=== PATIENT | male | born 1955 | race Caucasian/White ===

== ENCOUNTER 2018-02-17 12:16 | Emergency (ER) | payer OTHER ==
[~2018-02-17] VITALS: Ht 170.2 cm; Wt 89.4 kg
[~2018-02-17 12:16] MED LIST: COMBIGAN EYE DRO5 ML OP; LISINOPRIL-HCT1 EACH PO; VENLAFAXINE HCL75 M1 PO; XALATAN2.5 ML OPH
--- NOTE | 2018-02-17 12:28 | ED AMS/SEIZURE/WEAK/DIZZY ---
See Addendum History of Present Illness General Chief Complaint: Seizure Stated Complaint: BIBA R/O SEIZURE/AMS Source: patient Exam Limitations: no limitations Vital Signs & Intake/Output Vital Signs & Intake/Output Vital Signs Date Time Temp Pulse Resp B/P B/P Pulse O2 O2 Flow FiO2 Mean Ox Delivery Rate 02/17 1612 98.0 58 20 137/72 86 Room Air 02/17 1500 98.7 65 18 137/73 99 Room Air 02/17 1225 97.6 70 18 145/77 95 Room Air Allergies Coded Allergies: No Known Allergies (12/06/16) Reconcile Medications Buspirone HCl 15 MG TABLET 1 TAB PO BID MENTAL HEALTH (Reported) Divalproex Sodium 250 MG TABLET.DR 3 TAB PO BID SEIZURES (Reported) Latanoprost (Xalatan) 0.005 % DROPS 1 GTT OPH QPM GLAUCOMA (Reported) Lisinopril/Hydrochlorothiazide (Lisinopril-Hctz 20-12.5 MG Tab) 20 MG-12.5 MG TABLET 1 TAB PO DAILY HEART (Reported) Sertraline HCl 100 MG TABLET 1.5 TAB PO DAILY MENTAL HEALTH (Reported) Trazodone HCl 100 MG TABLET 1 TAB PO QPM SLEEP (Reported) Triage Note: PT BIBA S/P BEING FOUND ON FLOOR AT [facility]. EMS QUESTIONING SEIZURE/SYNCOPE. WOKE UP CONFUSED, APPEARING POST-ICTAL. MILD CONFUSION ON ARRIVAL. STATES HE'S HAD A SEIZURE IN THE PAST. AMER[place] ARELLANO AT BEDSIDE. Triage Nurses Notes Reviewed? yes Onset: Abrupt Duration: minute(s): HPI: 62-year-old male comes into the emergency room after being found unresponsive at [facility] and one of the eyelids. The patient is confused and a poor historian and history is very limited. He does remember going to [facility] to get a card for his ex-. He does not recall anything after that. He does not have any recall of the event that happened. He reports that the only thing abnormal is been that he is woken up the last 2 mornings feeling spacey and not himself. He has a history of remote seizures?. PT UNABLE TO PROVIDE A LOT OF INFO ON SEIZURES. (Tyree DRISCOLL,Pasquale) Past History Travel History Traveled to [place] past 21 day No Medical History Any Pertinent Medical History? see below for history Neurological: seizure EENT: glaucoma Cardiovascular: hypertension Psychiatric: depression Surgical History Surgical History: non-contributory Psychosocial History What is your primary language Cuban Tobacco Use: Quit >30 days ago Family History Hx Contributory? No (Pasquale Agarwal) Review of Systems Review of Systems Constitutional: Reports: no symptoms. EENTM: Reports: no symptoms. Respiratory: Reports: no symptoms. Cardiovascular: Reports: no symptoms. GI: Reports: no symptoms. Genitourinary: Reports: no symptoms. Musculoskeletal: Reports: no symptoms. Skin: Reports: no symptoms. Neurological/Psychological: Reports: see HPI. Hematologic/Endocrine: Reports: no symptoms. Immunologic/Allergic: Reports: no symptoms. All Other Systems: Reviewed and Negative (Pasquale Agarwal) Physical Exam Physical Exam General Appearance: well developed/nourished, no apparent distress, alert, awake Head: atraumatic, normal appearance Eyes: Bilateral: normal appearance, EOMI. Ears, Nose, Throat: normal ENT inspection, hearing grossly normal Neck: normal inspection Respiratory: normal breath sounds, no respiratory distress Cardiovascular: regular rate/rhythm Gastrointestinal: soft, non-tender Extremities: normal range of motion Neurologic/Psych: no motor/sensory deficits, awake, alert, ORIENTED TIMES 2 Skin: intact, normal color Core Measures ACS in differential dx? Yes CVA/TIA Diagnosis No Sepsis Present: No Sepsis Focused Exam Completed? No (Paqsuale Agarwal) Progress Differential Diagnosis: arrythmia, alcohol intoxication, CVA/stroke, drug intoxication, encephalitis, electrolyte imbalance, intracranial Hem., intracranial mass/tumor, pneumonia, presyncope, seizure disorder, UTI/pyelo, vertebrobasilar insuff Plan of Care: Orders Procedure Date/time Status Nothing by Mouth 02/18 B Active Pathway - chart 02/17 1629 Active House Staff 02/17 1629 Active Code Status 02/17 1629 Active House Staff 02/17 1618 Active Transfer patient to 02/17 1614 Active FingerStick- Glucose 02/17 1612 Active Lab Add-on Test 02/17 1604 Active EKG 02/17 1604 Active Patient Data 02/17 1504 Active Admit to inpatient 02/17 1438 Active DEPAKOTE LEVEL 02/17 1321 Complete Discontinue Telemetry/Monitor 02/17 1228 Active URINE DRUGS OF ABUSE 02/17 1228 Active TROPONIN LEVEL 02/17 1228 Complete PROLACTIN 02/17 1228 Complete ETHANOL 02/17 1228 Complete COMPREHENSIVE METABOLIC PANEL 02/17 1228 Complete CBC WITHOUT DIFFERENTIAL 02/178 Complete EKG 02/17 1228 Active Intake & Output 02/17 1226 Active VTE Mechanical Prophylaxis 02/17 UNK Active Vital Signs 02/17 UNK Active Seizure Precautions 02/17 UNK Active Precautions 02/17 UNK Active Laboratory Tests 02/17/18 1321: Anion Gap 9, Estimated GFR 47 L, BUN/Creatinine Ratio 17.3, Glucose 102 H, Calcium 8.9, Total Bilirubin 0.4, AST 32, ALT 46, Alkaline Phosphatase 47, Troponin I < 0.01, Total Protein 7.0, Albumin 4.0, Globulin 3.0, Albumin/ Globulin Ratio 1.3, Prolactin 11.6, CBC w Diff NO MAN DIFF REQ, RBC 3.81 L, MCV 97.3 H, MCH 33.5 H, MCHC 34.4, RDW 13.8, MPV 9.3, Gran % 75.3 H, Lymphocytes % 14.2 L, Monocytes % 10.1 H, Eosinophils % 0.2, Basophils % 0.2, Absolute Granulocytes 4.1, Absolute Lymphocytes 0.8 L, Absolute Monocytes 0.5, Absolute Eosinophils 0, Absolute Basophils 0, Valproic Acid 77.7, Serum Alcohol < 10.0 Diagnostic Imaging: Viewed by Me: Radiology Read, CT Scan. Discussed w/RAD: Radiology Read, CT Scan. Radiology Impression: PATIENT: ELY PAUL PRESENT AGE: 62 PATIENT ACCOUNT NO: [id number] : 54 LOCATION: [facility] ORDERING PHYSICIAN: Pasquale DRISCOLL SERVICE DATE: 02/17/18 EXAM TYPE : CAT - CT HEAD WO IV CONTRAST EXAMINATION: CT HEAD WITHOUT CONTRAST CLINICAL INFORMATION: Altered mental status found unresponsive. Confusion. COMPARISON: CT of the head done on 12/06/2016. TECHNIQUE: Contiguous axial imaging was performed from the skull base to vertex without intravenous administration of contrast. DLP: 611.05 mGy-cm FINDINGS: There is no evidence of acute intracranial hemorrhage or territorial infarction. No abnormal mass effect or midline shift is seen. Cruz to white matter differentiation is well preserved. No extra-axial fluid collections are identified. The ventricles are normal in size. There is no abnormal attenuation within the brain parenchyma. The osseous structures and soft tissues are normal. Lobulated soft tissue thickening is noted involving the left half of the sphenoid sinus, anteriorly extending into the adjacent posterior ethmoid air cells, similar to prior study, most consistent with sinusitis. Compared to prior study, mucosal thickening involving the right lobe of the sphenoid sinus appears improved. The remainder of the paranasal sinuses are well aerated and are unremarkable. Bilateral mastoid air cells are unremarkable. IMPRESSION: No acute intracranial pathology. Interval improvement of right sided sphenoidal sinus disease. No other significant change since 12/06/2016. DICTATED BY: Efren Mittal MD DATE/TIME DICTATED:02/17/181314 TENSILE TESTER:CARTER DATE/TIME TRANSCRIBED:02/17/181314 CONFIDENTIAL, DO NOT COPY WITHOUT APPROPRIATE AUTHORIZATION. <Electronically signed in Other Vendor System> SIGNED BY: Efren Mittal MD 02/17/18 1324, PATIENT: ELY PAUL PRESENT AGE: 62 PATIENT ACCOUNT NO: [id number] : 54 LOCATION: [facility] ORDERING PHYSICIAN: Pasquale DRISCOLL SERVICE DATE: 02/17/18 EXAM TYPE: RAD - XRY-PORTABLE CHEST XRAY EXAMINATION: XR PORTABLE CHEST CLINICAL INFORMATION: 62-year-old male with syncope versus seizures, confused. COMPARISON: None TECHNIQUE: Portable frontal view of the chest was obtained. FINDINGS: Hyperinflated lung field is present bilaterally. No superimposed discrete focal airspace disease is seen. The cardiac mediastinal silhouette is within normal limit. There is no pleural effusion or pneumothorax present. The visualized upper abdomen is unremarkable. IMPRESSION: No acute cardiopulmonary disease. DICTATED BY: Efren Mittal MD DATE/TIME DICTATED:02/17/181422 TENSILE TESTER:CARTER DATE/TIME TRANSCRIBED:02/17/181422 CONFIDENTIAL, DO NOT COPY WITHOUT APPROPRIATE AUTHORIZATION. <Electronically signed in Other Vendor System> SIGNED BY: Efren Mittal MD 02/17/181426 Initial ED EKG: normal sinus rhythm, rate (64) (Pasquale Agarwal) Departure Departure Disposition: STILL A PATIENT Condition: Stable Clinical Impression Primary Impression: Altered mental status Referrals: Nile Bruner MD (PCP/Family) Departure Forms: Customer Survey General Discharge Information Admission Note Spoke With: Renu Gonzáles MD Documentation of Exam: Documentation of any treatments & extenuating circumstances including Concerns Regarding Discharge (functional status, medication knowledge or non-compliance, living conditions, etc.) that warrant an admission rather than observation: MRI of brain. Neurology consultation. Repeat neuro checks. Patient is acutely altered here in the emergency room with no clear etiology. Patient still could be post ictal. Patient require close observation. Telemetry. Vital sign recheck. He is not safe for discharge. No family members. Tried contacting emergency contact number is not valid (Pasquale Agarwal) PA/[employer] Co-Sign Statement Statement: ED Attending supervision documentation- x I saw and evaluated the patient. I have also reviewed all the pertinent lab results and diagnostic results. I agree with the findings and the plan of care as documented in the PA's/[employer]'s documentation. Patient's history is concerning for further evaluation. Time of admission patient seems disoriented. Hemodynamically stable. [] I have reviewed the ED Record and agree with the PA's/[employer]'s documentation. [] Additions or exceptions (if any) to the PAs/[employer]'s note and plan are summarized below: [] (Joaquín MORIN,Vlad)
--- NOTE | 2018-02-17 13:24 | CT SCAN REPORT ---
EXAMINATION: CT HEAD WITHOUT CONTRAST CLINICAL INFORMATION: Altered mental status found unresponsive. Confusion. COMPARISON: CT of the head done on 12/06/2016. TECHNIQUE: Contiguous axial imaging was performed from the skull base to vertex without intravenous administration of contrast. DLP: 611.05 mGy-cm FINDINGS: There is no evidence of acute intracranial hemorrhage or territorial infarction. No abnormal mass effect or midline shift is seen. Cruz to white matter differentiation is well preserved. No extra-axial fluid collections are identified. The ventricles are normal in size. There is no abnormal attenuation within the brain parenchyma. The osseous structures and soft tissues are normal. Lobulated soft tissue thickening is noted involving the left half of the sphenoid sinus, anteriorly extending into the adjacent posterior ethmoid air cells, similar to prior study, most consistent with sinusitis. Compared to prior study, mucosal thickening involving the right lobe of the sphenoid sinus appears improved. The remainder of the paranasal sinuses are well aerated and are unremarkable. Bilateral mastoid air cells are unremarkable. IMPRESSION: No acute intracranial pathology. Interval improvement of right sided sphenoidal sinus disease. No other significant change since 12/06/2016.
[2018-02-17 13:37] LABS: ABSOLUTE BASOPHIL COUNT 0 /CUMM (0.0-0.2); ABSOLUTE EOSINOPHIL COUNT 0 /CUMM (0.0-0.7); ABSOLUTE GRANULOCYTE CT 4.1 /CUMM (1.4-6.5); ABSOLUTE LYMPH COUNT 0.8 /CUMM (1.2-3.4); ABSOLUTE MONOCYTE COUNT 0.5 /CUMM (0.10-0.60); BASOPHIL % 0.2 % (0.0-2.0); EOSINOPHIL % 0.2 % (0-5); GRANULOCYTE % 75.3 % (42.2-75.2); MEAN CORPUSCULAR HGB 33.5 PG (27.0-31.0); MEAN CORPUSCULAR HGB CONC 34.4 G/DL (33.0-37.0); MEAN CORPUSCULAR VOLUME 97.3 FL (80.0-94.0); MEAN PLATELET VOLUME 9.3 FL (7.4-10.4); PLATELET COUNT 175 /CUMM (130-400); RBC DISTRIBUTION WIDTH 13.8 % (11.5-14.5); RED BLOOD CELL CT 3.81 /CUMM (4.70-6.10); WHITE BLOOD CELL COUNT 5.4 /CUMM (4.8-10.8)
--- NOTE | 2018-02-17 14:27 | RADIOLOGY REPORT ---
EXAMINATION: XR PORTABLE CHEST CLINICAL INFORMATION: 62-year-old male with syncope versus seizures, confused. COMPARISON: None TECHNIQUE: Portable frontal view of the chest was obtained. FINDINGS: Hyperinflated lung field is present bilaterally. No superimposed discrete focal airspace disease is seen. The cardiac mediastinal silhouette is within normal limit. There is no pleural effusion or pneumothorax present. The visualized upper abdomen is unremarkable. IMPRESSION: No acute cardiopulmonary disease.
[2018-02-17] MEDS ORDERED: DIVALPROEX SOD250 M2 PO (14:48)
[2018-02-17] MEDS ORDERED: SERTRALINE HCL100 MG PO (14:53)
[2018-02-17] MEDS ORDERED: BUSPIRONE HCL15 M1 PO (14:53)
[2018-02-17] MEDS ORDERED: TRAZODONE HCL100 M1 PO (14:54)
--- NOTE | 2018-02-17 15:18 | History & Physical ---
[place] 02/17/18 1510: General Information and HPI MD Statement: I have seen and personally examined ELY PAUL and documented this H&P. The patient is a 62 year old M who presented with a patient stated chief complaint of unresponsiveness []. Source of Information: patient, old records, EMS Exam Limitations: no limitations History of Present Illness: 62-year-old male, smoking marijuana with past medical history of hypertension, seizures, glaucoma and depression brought to ED by EMS as patient was found unresponsive on the floor at [facility] pharmacy. According to the patient he was at [employer] to get a card for her . She at the store and when he woke up he found himself in ambulance. Patient does not remember what happened to him. He denied any presyncopal symptoms or aura-like symptoms. Patient denied chest pain, palpitation, nausea, vomiting, abdominal pain, shortness of breath, trauma to head, urine incontinence, stool incontinence, tongue bite and dysuria. Patient reported that he had that kind of episode 1 year back when he bit his tongue and still his tip of the tongue is numb. Patient has seizure-like episodes for last 1-1/2 years and he is following Dr. Jha. Patient also reported that he is falling seizure clinic at [place]. According the patient all his imaging studies including MRIs and EEG remained negative for seizures. He is taking his antiseizure Medications regularly. Patient reported that he is using Advil 800 mg every day for back pain. He had a seizure episode 6 weeks back when he was admitted to [facility] and then discharged from there. Patient reported family history of coronary artery disease as his father due to LA in his 40s. He denied any family history of seizures. ED course: Vitals: Temperature 97.6, pulse 70, respiratory rate 18, blood pressure 145/77, oxygen saturation 95% on room air. Lab: WBC count 5.4, hemoglobin 12.8, hematocrit 37.0, platelet count 175, sodium 131, potassium 4.0, creatinine 1.5, glucose 102, BUN/creatinine ratio 17.3, ALT 46, troponin less than 0.01 prolactin 11.6, serum alcohol level less than 10.[address] scan remained negative for any intracranial pathology except right-sided sphenoidal sinus disease. Chest x-ray remained negative for any intra-pulmonary pathology. Allergies/Medications Allergies: Coded Allergies: No Known Allergies (12/06/16) Home Med list Buspirone HCl 15 MG TABLET 1 TAB PO BID MENTAL HEALTH (Reported) Divalproex Sodium 250 MG TABLET.DR 3 TAB PO BID SEIZURES (Reported) Latanoprost (Xalatan) 0.005 % DROPS 1 GTT OPH QPM GLAUCOMA (Reported) Lisinopril/Hydrochlorothiazide (Lisinopril-Hctz 20-12.5 MG Tab) 20 MG-12.5 MG TABLET 1 TAB PO DAILY HEART (Reported) Sertraline HCl 100 MG TABLET 1.5 TAB PO DAILY MENTAL HEALTH (Reported) Trazodone HCl 100 MG TABLET 1 TAB PO QPM SLEEP (Reported) Past History Travel History Traveled to [place] past 21 day No Medical History Neurological: seizure EENT: glaucoma Cardiovascular: hypertension Psychiatric: depression Surgical History Surgical History: non-contributory Review of Systems Review of Systems Constitutional: Denies: chills, fever, weakness. EENTM: Reports: see HPI. Cardiovascular: Denies: chest pain, palpitations. Respiratory: Denies: cough, short of breath, sputum production, wheezing. GI: Denies: abdominal pain, constipation, diarrhea, nausea, vomiting. Genitourinary: Denies: discharge, dysuria, frequency. Musculoskeletal: Reports: back pain. Neurological/Psychological: Reports: confusion. Denies: headache, numbness. Exam & Diagnostic Data Last 24 Hrs of Vital Signs/I&O Vital Signs Date Time Temp Pulse Resp B/P B/P Pulse O2 O2 Flow FiO2 Mean Ox Delivery Rate 02/17 1500 98.7 65 18 137/73 99 Room Air 02/17 1225 97.6 70 18 145/77 95 Room Air Intake & Output 02/17 1600 02/17 0800 02/17 0000 Intake Total 0 Output Total Balance 0 Intake, Oral 0 Patient 197 lb Weight Weight Reported by Patient Measurement Method Physical Exam General Appearance Alert, Oriented X3, Cooperative Skin Temp/Moisture Exam: Warm/Dry Sepsis Skin Exam (color): Normal for Ethnicity HEENT Atraumatic, PERRLA, EOMI Neck Supple Cardiovascular Normal S1, Normal S2 Lungs Clear to Auscultation Abdomen Soft, No Tenderness Neurological Normal Speech, Strength at 5/5 X4 Ext, Normal Tone Extremities No Edema Assessment/Plan Assessment: 62-year-old male, smoking marijuana with past medical history of hypertension, seizures, glaucoma and depression brought to ED by EMS as patient was found unresponsive on the floor at [facility]. Seeing the patient on telemetry for following problems. Seizure episode: -Considering patient's history of sudden loss of consciousness and postictal changes as he was confused after the passing out episode, looks like patient has seizure episode. Also patient denied any nausea vomiting or palpitation before passing out. -Seizure precautions -Aspiration precautions -Continue his Depakote 750 mg twice daily -Monitor Depakote level. If his Depakote level is less than therapeutic then we will increase his Depakote dose. -Neurology recommendations -Considering his imaging studies in the past and EEGs but will not do any at this point. Symptomatic sinus bradycardia: -In ED patient had sinus bradycardia in 50s and he for couple of seconds. Patient had 12 seconds pause on monitoring analyst. -Considering patient's positive family history for coronary artery disease as his father in 40s, we will keep the patient on monitoring analyst to look for arrhythmias and pauses -Atropine and pacer pads on the bedside -Cardiology recommendations -Echocardiogram -Avoid AV daisy blocking meds. -Patient may need permanent pacemaker placement. Hyponatremia: -Possibly medication induced. On admission his sodium is 131 his last -Urine lytes to find the etiology. -Monitor his sodium levels Acute kidney injury: -Possibly due to adverse use as patient reported he was using Advil 800 mg daily for back pain. -On admission his creatinine is 1.5 and GFR is 47. -Avoid NSAIDs -Avoid nephrotoxic medications -Monitoring his renal function. History of back pain: -Avoid Advil -Warm compressions -Follow pain pathway for pain management. History of hypertension: -Continue lisinopril/hydrochlorothiazide History of depression: -Continue venlafaxine DVT prophylaxis: Mechanical and subcutaneous Lovenox CODE STATUS: Full code As Ranked By This Provider Problem List: 1. Hyponatremia 2. Acute kidney injury 3. Seizures Core Measures/Misc (02/13) Acute Coronary Syndrome ACS Diagnosis: No Congestive Heart Failure Congestive Heart Failure Diagnosis No Cerebrovascular Accident CVA/TIA Diagnosis: No VTE (View Protocol) VTE Risk Factors Age>40 No Mechanical VTE Prophylaxis d/t N/A MechProphylax Ordered No VTE Pharm Prophylaxis d/t NA PharmProphylax ordered Sepsis (View protocol) Sepsis Present: No If YES complete Sepsis Event Note If YES complete Sepsis Event Note Gianfranco Felton 02/17/18 1619: Core Measures/Misc (02/13) Sepsis (View protocol) If YES complete Sepsis Event Note If YES complete Sepsis Event Note Resident Review Statement Resident Statement: examined this patient, discussed with manufacturing engineering intern, agreed with manufacturing engineering intern, reviewed images, amended to note Other Findings: This is a 62 years old into man with past medical history of hypertension, glaucoma, seizure who follows up with Dr. Jha and is on antiseizure medication who was brought in by ambulance from [facility] after having an unwitnessed seizure activity. The patient started having seizure about 1-1/2 years ago has undergone extensive workup all of which has been negative. The most recent seizure she had was in December of which he reported that had skipped his antiseizure medication but volunteers that since then has been taking his medication constantly without missing. During this index episode the patient denies any aura prior to falling down and just workup to find himself in the ambulance. There was no fecal or urine incontinence and denies any tongue biting or mouth trauma. Patient denies any dizziness lightheadedness palpitation or shortness of breath. Short. After the patient was in the ER experienced a 12 second pause followed by 2 beats and then 6 second pause during which the patient passed out completely just to workup and becoming oriented again. He volunteers history of sudden cardiac in the family one uncle and his father at age 45. Patient reports he has been drinking appropriately but volunteers that has been taking Advil 800 mg every day for his chronic back pain. He smokes recreational marijuana but denies using any other drugs of abuse. On arrival the patient was afebrile 97.8 heart rate of 70 respiration of 18 blood pressure 145/77 and saturating 95% on room air When we examined the patient was awake alert and oriented to time place and person very pleasant and answering question appropriately. Neurological: Pupils equal round and reactive to light all cranial nerves III through XII normal normal power in both upper and lower limbs with normal reflexes, intact to sensation. Cardiovascular: Regular rate and rhythm normal S1-S2 no murmurs Lungs: Clear lungs bilaterally Extremities: No cyanosis edema or clubbing Blood work creatinine 1.5 previous 1.2 in 2017 GFR of 47 previous 60 negative troponin at 0.01 EKG showed normal sinus rhythm regular [address]-T wave changes and a QTC of 434 Assessment and plan 62 years old with history of seizure on seizure medications brought in by ambulance after being found unresponsive while in the ER experienced a total of 18 seconds pause with only 2 beats in between after 12 seconds. Found to have acute kidney injury picture with history of extensive use of NSAIDs. Seizure Arrhythmia with symptomatic pauses Acute kidney injury Hypertension Admit the patient to the intensive care unit Vital signs every hour Patient should be n.p.o. Cardiology consult Check Depakote level and continue dosing depending on the level Tropes and EKG 3 sets Avoid cardiac blocking medications Pacer pads by bedside and atropine Patient is full code Heparin for DVT prophylaxis Renu Gonzáles MD 02/17/18 1635: Core Measures/Misc (02/13) Sepsis (View protocol) If YES complete Sepsis Event Note If YES complete Sepsis Event Note Attending MD Review Statement Attending Statement Attending MD Statement: examined this patient, discuss w/resident/PA/ACLS SPECIALIST, agreed w/resident/PA/ACLS SPECIALIST, reviewed EMR data (avail) Attending Assessment/Plan: 62M PMH seizure disorder brought in by EMS after being found unresponsive at the [facility]. Patient was somnolent, then very confused, and mental status slowly improved over 2 hours. He did not have any witnessed seizure like activity, and on initial exam there was no facial droop, asymmetry, weakness, or focal neurological signs. He was A&Ox0 to ER. When I saw him, 3 hours after the event occured, he was A&Ox3 but still a bit confused. He was able to tell me that his last seizure was 6 weeks ago and he had his first one about a year and a half ago. I spoke to his neurologist, Dr. Jha, who reported that the patient has had multiple seizures over the past 18 months, and has had multiple negative EEG, MRI, and video-EEG. The patient takes Depakote 750mg BID and is compliant. Per Dr. Jha, the patient's memory problems linger weeks after each episode. On neuro exam, cranial nerves were intact, strength normal, sensation normal, cerebellar tests normal. The patient had no complaints, though was still slightly confused. CT head negative. 30 minutes after that, the patient had a 12 second run of asystole, followed by two sinus beats, then a 6 second run of asystole. He went back into NSR. This was witnessed by myself and ER nursing. During this episode, the patient started staring off, he would not respond when called, and he became diaphoretic. 30 minutes later he is speaking again but not making much sense and is A&Ox0. EKG done at that time now shows NSR at a HR [address]/T changes. It is possible the patient has been having asystolic episodes masquerading as seizures. Patient also just told us that his father at age 45 and his uncle at age 50, both of sudden cardiac . 1. Asystole 2. Seizure like activity 3. Unresponsiveness Plan - Admit to ICU - Spoke with cardiology who will urgently come and see the patient. Patient will likely require pacemaker placement - Critical care consult in the morning, Dr. Eckert made aware - Check electrolytes, Mg, TSH - Hold any AV-daisy blocking agents - No further brain imaging - Check Depakote level, if normal or low can restart Depakote - Hold all other home medications - DVT PPx
--- NOTE | 2018-02-17 16:47 | Admission Certification ---
Admission Certification Certification Statement - As attending physician, I certify that at the time of - admission, based on clinical presentation, severity of - symptoms, need for further diagnostic testing and - therapeutic interventions, and risk of adverse outcomes - without in-hospital treatment, in my clinical assessment, - this patient requires an acute hospital stay for a minimum - of two nights or longer. I have also considered psychsocial - factors such as support system, advanced age, financial - issues, cognitive issues, and failed out-patient treatments, - past re-admission history, safety of patient, and lack of - compliance as applicable. Specific rationale supporting this admission is: Asystole
[2018-02-17 17:09] VITALS: BP 165/87
--- NOTE | 2018-02-17 17:32 | Patient Discharge Instructions ---
Discharge Instructions General Discharge Information You were seen/treated for: Seizure disorder Asystole episode Special Instructions: Currently holding patient antihypertensive medications due to GÓMEZ picture review and restart accordingly. Patient psychiatric medications on hold because of the new Asystole. Review and restart accordingly Please call and make a follow-up with your neurologist within 1 week after discharge Please call and make a follow-up with your primary care physician within 1 week after discharge Acute Coronary Syndrome Inclusion Criteria At DC or during hospital stay patient has or had the following: ACS DIAGNOSIS No Discharge Core Measures Meds if any: Prescribed or Continued at Discharge Meds if any: NOT Prescribed or Continued at Discharge Congestive Heart Failure Inclusion Criteria At DC or during hospital stay patient has or had the following: CHF DIAGNOSIS No Discharge Core Measures Meds if any: Prescribed or Continued at Discharge Meds if any: NOT Prescribed or Continued at Discharge Cerebrovascular accident Inclusion Criteria At DC or during hospital stay patient has or had the following: CVA/TIA Diagnosis No Discharge Core Measures Meds if any: Prescribed or Continued at Discharge Meds if any: NOT Prescribed or Continued at Discharge Venous thromboembolism Inclusion Criteria VTE Diagnosis No VTE Type NONE VTE Confirmed by (Test) NONE Discharge Core Measures - Per Current guidelines, there needs to be overlap - treatment for the first 5 days of Warfarin therapy. - If discharged on Warfarin prior to 5 days of - overlap therapy, the patient will need to be - assessed for post discharge needs including - *Post discharge parental anticoagulation - *Warfarin and/or parental anticoagulation education - *Follow up date to check INR post discharge At least 5 days overlap therapy as Inpatient No Meds if any: Prescribed or Continued at Discharge Note: Overlap Therapy is Warfarin and Anticoagulant Meds if any: NOT Prescribed or Continued at Discharge
--- NOTE | 2018-02-17 17:42 | Discharge Summary ---
Visit Information Visit Dates Admission Date: 02/17/18 Discharge Date: February 17, 2018 Hospital Course Course Attending Physician: Renu Gonzáles MD Primary Care Physician: Nile Bruner MD Hospital Course: This is a 62 years old into man with past medical history of hypertension, glaucoma, seizure who follows up with Dr. Jha and is on antiseizure medication who was brought in by ambulance from [facility] after having an unwitnessed seizure activity. The patient started having seizure about 1-1/2 years ago has undergone extensive workup all of which has been negative. The most recent seizure she had was in December of which he reported that had skipped his antiseizure medication but volunteers that since then has been taking his medication constantly without missing. While the patient was in the ER he experienced a 12 second pause followed by 2 beats and then 6 second pause during which he completely passed out. This was followed by. Of sinus bradycardia heart rate of around 56. Patient has extensive cardiac history with 1 of his uncles and father dying at around age 45 suddenly of a cardiac event. We made a decision to transfer the patient to [facility] for pacemaker placement. Asystole episode This is a patient without cardiac history and does not follow up with any casting wheel operator helper and currently on presentation does not have any cardiac complaints. However had asymptomatic he witnessed a systole period and might require life- sustaining pacemaker placement. We are holding all his home medication with the exception of Depakote for seizure prophylaxis and please consider reviewing the medication and restarting them accordingly upon discharge after management of this condition. Seizure disorder Patient with history of seizure for the past 1-1/2 years brought in by ambulance after having an unwitnessed seizure but not associated with any aura, incontinence or tongue biting. At this moment is hard to conclude if it was a true seizure episode or another antiarrhythmic episode which caused the patient to pass out. His blood Depakote level was within therapeutic range. Patient takes Depakote 750 mg twice a day which I think should continue taking. He follows with Dr. Jha neurology for his seizure disorder and is reported to have had extensive workout all of which has been negative. Continue with seizure precautions as deemed appropriate. Acute kidney injury This patient presented with creatinine of 1.5 which is significantly high from his baseline of 1.2 in 2017 which at the same time had normal GFR of more than 60 but today GFR is 47. He has been hydrating well and has no any signs of dehydration. However the patient reported using Advil 800 mg every day for substantial amount of time for his back pain. Counseled to avoid NSAIDs and please continue to avoid nephrotoxic medications. Hypertension Patient has history of hypertension and is on lisinopril HCTZ currently we are holding the medication because of the AK I and blood pressure Beatriz is controlled. Complications: Assystole episode Allergies: Coded Allergies: No Known Allergies (12/06/16) Significant Procedures: None Pertinent Lab Results: Laboratory Tests 02/17 1321 Chemistry Sodium (137 - 145 mmol/L) 131 L Potassium (3.5 - 5.1 mmol/L) 4.0 Chloride (98 - 107 mmol/L) 95 L Carbon Dioxide (22 - 30 mmol/L) 28 Anion Gap (5 - 16) 9 BUN (9 - 20 mg/dL) 26 H Creatinine (0.7 - 1.2 mg/dL) 1.5 H Estimated GFR (>60 ml/min) 47 L BUN/Creatinine Ratio (7 - 25 %) 17.3 Glucose (65 - 99 mg/dL) 102 H Calcium (8.4 - 10.2 mg/dL) 8.9 Magnesium (1.6 - 2.3 mg/dL) 2.1 Total Bilirubin (0.2 - 1.3 mg/dL) 0.4 AST (17 - 59 U/L) 32 ALT (21 - 72 U/L) 46 Alkaline Phosphatase (< 127 U/L) 47 Troponin I (<0.11 ng/ml) < 0.01 Total Protein (6.3 - 8.2 g/dL) 7.0 Albumin (3.5 - 5.0 g/dL) 4.0 Globulin (1.9 - 4.2 gm/dL) 3.0 Albumin/Globulin Ratio (1.1 - 2.2 %) 1.3 TSH (0.270 - 4.200 uIU/mL) 1.870 Thyroxine (T4) (4.5 - 10.9 ug/dL) 5.1 Prolactin (3.7 - 17.9 ng/mL) 11.6 Hematology CBC w Diff NO MAN DIFF REQ WBC (4.8 - 10.8 /CUMM) 5.4 RBC (4.70 - 6.10 /CUMM) 3.81 L Hgb (14.0 - 18.0 G/DL) 12.8 L Hct (42 - 52 %) 37.0 L MCV (80.0 - 94.0 FL) 97.3 H MCH (27.0 - 31.0 PG) 33.5 H MCHC (33.0 - 37.0 G/DL) 34.4 RDW (11.5 - 14.5 %) 13.8 Plt Count (130 - 400 /CUMM) 175 MPV (7.4 - 10.4 FL) 9.3 Gran % (42.2 - 75.2 %) 75.3 H Lymphocytes % (20.5 - 51.1 %) 14.2 L Monocytes % (1.7 - 9.3 %) 10.1 H Eosinophils % (0 - 5 %) 0.2 Basophils % (0.0 - 2.0 %) 0.2 Absolute Granulocytes (1.4 - 6.5 /CUMM) 4.1 Absolute Lymphocytes (1.2 - 3.4 /CUMM) 0.8 L Absolute Monocytes (0.10 - 0.60 /CUMM) 0.5 Absolute Eosinophils (0.0 - 0.7 /CUMM) 0 Absolute Basophils (0.0 - 0.2 /CUMM) 0 Toxicology Valproic Acid (50 - 120 ug/mL) 77.7 Serum Alcohol (<10 MG/DL) < 10.0 Disposition Summary Disposition Principal Diagnosis: Asystole episode Unresponsiveness Seizure episode Acute kidney injury Additional Diagnosis: Glaucoma Depression Discharge Disposition: other general hospital Discharge Instructions General Discharge Information Code Status: Full Code Patient's Diet: N.p.o. pending possible procedure Patient's Activity: As tolerated Follow-Up Instructions/Appts: Please call and make a follow-up with your primary care physician after discharge. Please call and make a follow-up with your neurologist Dr. Jha within 1 week after discharge Medications at Discharge Discharge Medications: Stop taking the following medications: Lisinopril/Hydrochlorothiazide (Lisinopril-Hctz 20-12.5 MG Tab) 20 MG-12.5 MG TABLET ORAL DAILY Qty = 30 Sertraline HCl (Sertraline HCl) 100 MG TABLET ORAL DAILY Qty = 45 Buspirone HCl (Buspirone HCl) 15 MG TABLET ORAL TWICE DAILY Qty = 60 Trazodone HCl (Trazodone HCl) 100 MG TABLET ORAL Every night Qty = 30 Continue taking these medications: Latanoprost (Xalatan) 0.005 % DROPS 1 Drop In the eye Every night Qty = 3 Divalproex Sodium (Divalproex Sodium) 250 MG TABLET.DR 3 Tablet ORAL TWICE DAILY Qty = 180 Copies To: Jono MORIN,Arun; Abhijeet MORIN,Andrei Rascon; Zohreh MORIN,Nile Oneil
== END 2018-02-17 18:21 | disposition short-term general hospital (02) ==
LOC: ERH 12:16 → ERHI 14:38 → CANRESERV 15:24 → ENRESERV 15:24 → EDBEDREQ 16:25 → ENRESERV 16:44 → ERHI 18:21
PROVIDERS: Physician Assistant Medical
DX: R41.82 Altered mental status, unspecified (principal); I10 Essential (primary) hypertension; R56.9 Unspecified convulsions; Z87.891 Personal history of nicotine dependence
CPT/HCPCS: ERO; 71045; 80307; 93005; 93010; G0480